=== PATIENT | male | born 1995 | race Caucasian/White ===

== ENCOUNTER 2018-06-22 23:14 | Emergency (ER) | payer OTHER ==
[~2018-06-22] VITALS: Ht 160 cm; Wt 63.5 kg
--- NOTE | 2018-06-22 23:52 | PCM.EKG ---
[facility] Test Date: 2018-06-22 Test Time: 23:54:33 Pat Name: DANILO RANDLE Department: Patient ID: [facility]-[id number] Room: Gender: M Network Support Analyst: MESHA : 1995 Requested By: JOHAN REID Order Number: [id number] Reading MD: Johan REID Measurements Intervals [place] Rate: 76 P: 70 NM: 170 QRS: 37 QRSD: 84 T: 30 QT: 358 QTc: 402 Interpretive Statements Normal sinus rhythm Normal ECG No previous ECG available for comparison Electronically Signed On 06-23-2018 0:14:52 CDT by Johan REID Please click the below link to view image of tracing.
[2018-06-22 23:53] LABS: BASOPHIL # 0.1 10^3/uL (0.0-0.1); BASOPHIL % 0.4 % (0.0-0.2); EOSINOPHIL # 0.1 10^3/uL (0.0-0.2); EOSINOPHIL % 0.9 % (0.0-5.0); LYMPHOCYTES # 1.9 10^3/uL (1.0-4.8); LYMPHOCYTES % 14.8 % (24.0-44.0); MEAN CELL HGB 31.1 pg (26-34); MEAN CELL HGB CONCENTRATION 34.3 g/dL (33-37); MEAN CORP VOLUME 90.7 fL (78-100); MEAN PLATELET VOLUME 10.2 fL (7.8-11.0); MONOCYTES # 1.1 10^3/uL (0.3-0.8); MONOCYTES % 8.3 % (5.0-12.0); NEUTROPHIL # 9.5 10^3/uL (1.8-7.7); NEUTROPHILS % 74.6 % (41.0-85.0); RED CELL DISTRIBUTION WIDTH 13.1 % (11.5-14.5); WHITE BLOOD CELL 12.7 10^3/uL (4.5-11.0)
--- NOTE | 2018-06-22 23:55 | ER.PDOC ---
General Chief Complaint: Seizure Stated Complaint: SEIZURE Time seen by MD: 23:52 Source: EMS History of Present Illness Initial Comments Possible seizure at [place]. Currently taking antibiotics for AGE. Timing/Onset/Duration: Single Episode Preceding Symptoms/Context: activity prior to seizure Character Of Seizures: unknown Motor Activity: other (unknown) Post-ictal Symptoms: none Injury: none Allergies: Coded Allergies: Sulfa (Sulfonamide Antibiotics) (Verified Allergy, Unknown, 06/22/18) Past Medical History Surgical History: no surgical history Social History Smoking: non-smoker Alcohol Use: occassionally Drug Use: none Constitutional: no symptoms reported EENTM: no symptoms reported Respiratory: no symptoms reported Cardiovascular: no symptoms reported Gastrointestinal: no symptoms reported Psychiatric/Neurological: see HPI All Other Systems: Reviewed and Negative Physical Exam General Appearance: alert, no distress EENT: nml eye inspection, PERRL, no nystagmus, nml ENT inspection, no apparent , pharynx nml, no CSF leak Neck/Back: neck supple, non-tender Respiratory: no resp distress, breath sounds nml, no evidence of rib injury CVS: reg rate & rhythm, heart sounds nml Abdomen: non-tender, no organomegaly, no distention Skin: color nml, no rash, warm/dry Extremities: non-tender, nml ROM, no pedal edema Neuro/Psych: oriented x 3, speech nml, mood/affect nml Sensorimotor: no motor deficit, no sensory deficit, reflexes nml Progress Progress Patient feeling fine and back to his baseline. EKG/XRAY/CT/US EKG: NSR CT Comments: Nothing acute intracranially Departure Time of Disposition: 00:31 Disposition: 01 HOME, SELF-CARE Impression: Primary Impression: Syncope and collapse Additional Impression: Vaso vagal episode Condition: Improved Referrals: PCP,UNKNOWN (PCP) PRIMARY CARE PROVIDER Additional Instructions: F/U with your PCP in 2-3 days Duration or Time Spent with Pa: 60 mins JEANETTE,JOHAN Valle MD Jun 22, 2018 23:55
[2018-06-23 00:14] LABS: ALANINE AMINOTRANSFERASE(ML) 68 U/L (12-78); ALKALINE PHOSPHATASE 56 U/L (50-136); ASPARTATE AMINO TRANSFERASE 46 U/L (0-35); CALCIUM 9.2 mg/dL (8.4-10.5); CARBON DIOXIDE 26.3 mmol/L (20.0-32); GLUCOSE 97 mg/dL (70-110)
--- NOTE | 2018-06-23 00:29 | DIREP ---
PROCEDURE:CT HEAD OR BRAIN W/O CONTRAST COMPARISON:None. INDICATIONS:Syncope TECHNIQUE:CT images were created without intravenous contrast. FINDINGS: VENTRICLES: Unremarkable ventricular size and morphology for the patient's age. CEREBRUM: No apparent mass or mass effect. No acute intracranial hemorrhage or abnormal extra-axial fluid collections. No CT evidence to suggest acute large vascular territorial ischemia. CEREBELLUM: Unremarkable for the patient's age. BRAINSTEM: Normal. SKULL: Normal. SINUSES: No significant paranasal sinus disease OTHER: Negative. CONCLUSION:No acute intracranial abnormality. Dictated by: Bentley Walker M.D. on 06/23/2018 at 00:24 AM
--- NOTE | 2018-06-23 00:30 | NUR ---
IV DC'D TIP INTACT, NO BLEEDING
[2018-06-23 00:31] VITALS: BP 126/67
[2018-06-23 00:40] VITALS: BP 126/67
== END 2018-06-23 00:35 | disposition home or self-care (01) ==
LOC: ER 23:14
DX: R55 Syncope and collapse (principal); K52.9 Noninfective gastroenteritis and colitis, unspecified; Z88.2 Allergy status to sulfonamides
CPT/HCPCS: 36415; 70450; 80053; 84484; 85025; 93005; 99285